=== PATIENT | female | born 1935 | race African-American/Black ===

== ENCOUNTER 2018-07-26 23:50 | Emergency (ER) | payer MEDICARE, MEDICAID ==
[~2018-07-26] VITALS: Ht 167.6 cm; Wt 86.0 kg
[2018-07-27] MEDS ORDERED: MECLIZINE 25MG TABLET PO ONE (00:45)
[2018-07-27 00:56] LABS: EOSINOPHILS % 4.4 % (0.0-5.0); HEMATOCRIT. 37.7 % (36.0-48.0); HEMOGLOBIN. 12.6 g/dL (12.0-16.0); LYMPHOCYTES % 28.8 % (20.0-50.0); MEAN CORPUSCULAR HEMOGLOBIN 32.1 pg (28.0-32.0); MONOCYTES % 8.3 % (2.0-8.0); NEUTROPHILS % 57.5 % (40.0-76.0); PLATELET 232 x1000/uL (130-400); RED BLOOD CELL COUNT 3.92 mill/uL (4.2-5.4); RED CELL DISTRIBUTION WIDTH 12.9 % (11.6-14.6)
[2018-07-27 01:01] LABS: CHLORIDE 109 mEq/L (98-107)
[2018-07-27 05:22] VITALS: BP 174/81
== END 2018-07-27 05:30 | disposition home or self-care (01) ==
LOC: ER 23:50
DX: R42 Dizziness and giddiness (principal); I10 Essential (primary) hypertension; E11.9 Type 2 diabetes mellitus without complications; E78.00 Pure hypercholesterolemia, unspecified; Z90.710 Acquired absence of both cervix and uterus; Z96.659 Presence of unspecified artificial knee joint; Z98.890 Other specified postprocedural states; Z88.0 Allergy status to penicillin
CPT/HCPCS: 36415; 70450; 71045; 80053; 83880; 84484; 85025; 93005; 99284; J8597

== ENCOUNTER 2018-09-15 17:47 | Inpatient (IN) | payer MEDICARE, MEDICAID ==
[~2018-09-15] VITALS: Ht 180.3 cm; Wt 97.2 kg
[2018-09-15] MEDS ORDERED: SODIUM CHLORIDE 0.9% 500 ML IV ONE (19:26)
[2018-09-15] MEDS ORDERED: ASPIRIN 81MG TABLET PO ONE (19:30)
[2018-09-15 19:52] LABS: BASOPHILS % 1.2 % (0.0-2.0); EOSINOPHILS % 3.2 % (0.0-5.0); HEMATOCRIT. 37.9 % (36.0-48.0); HEMOGLOBIN. 12.9 g/dL (12.0-16.0); LYMPHOCYTES % 24.7 % (20.0-50.0); MEAN CORPUSCULAR HEMOGLOBIN 32.3 pg (28.0-32.0); MEAN CORPUSCULAR VOLUME 95.2 fL (81.0-99.0); MEAN PLATELET VOLUME 8.3 fl (7.4-10.4); MONOCYTES % 9.5 % (2.0-8.0); NEUTROPHILS % 61.4 % (40.0-76.0); PLATELET 178 x1000/uL (130-400); RED BLOOD CELL COUNT 3.97 mill/uL (4.2-5.4); RED CELL DISTRIBUTION WIDTH 13.4 % (11.6-14.6)
[2018-09-15 19:56] LABS: CHLORIDE 105 mEq/L (98-107)
[2018-09-15 19:58] LABS: PROTHROMBIN TIME 10.2 sec (9.6-11.0)
[2018-09-15] MEDS ORDERED: POTASSIUM CHLORIDE 20MEQ TABLET SR PO ONE (20:15)
[2018-09-15] MEDS ORDERED: ONDANSETRON HCL 4MG/2ML INJ IV PRN (20:30)
[2018-09-15] MEDS ORDERED: ACETAMINOPHEN 325MG TABLET PO PRN (20:30)
[2018-09-15] MEDS ORDERED: DOCUSATE SODIUM 100MG CAPSULE PO PRN (20:30)
[2018-09-15] MEDS ORDERED: CLONIDINE 0.1MG TABLET PO PRN (20:30)
[2018-09-15] MEDS ORDERED: NITROGLYCERIN OINT 1GM/INCH UDPKT TD ONE (20:30)
[2018-09-15] MEDS ORDERED: HYDROMORPHONE HCL/PF 2MG/ML CPJ IV PRN (20:30)
[2018-09-15] MEDS ORDERED: ACETAMINOPHEN 325MG TABLET PO ONE (20:30)
[2018-09-15 22:12] LABS: CLARITY URINE CLOUDY (CLEAR); COLOR URINE YELLOW (YELLOW); KETONES URINE NEGATIVE (NEGATIVE); LEUKOCYTE ESTERASE URINE TRACE (NEGATIVE); NITRITE URINE NEGATIVE (NEGATIVE); OCCULT BLOOD URINE NEGATIVE (NEGATIVE); PH URINE 7.5 (4.5-8.0); PROTEIN URINE NEGATIVE (NEGATIVE); SPECIFIC GRAVITY URINE 1.007 (1.005-1.030)
[2018-09-15 22:25] LABS: *AMPHETAMINES SCREEN URINE NEGATIVE (NEGATIVE); *BARBITURATES SCREEN URINE NEGATIVE (NEGATIVE); *BENZODIAZEPINES SCREEN URINE NEGATIVE (NEGATIVE); *COCAINE SCREEN URINE NEGATIVE (NEGATIVE); METHADONE URINE SCREEN NEGATIVE (NEGATIVE); OPIATES URINE SCREEN NEGATIVE (NEGATIVE)
[2018-09-15 22:26] LABS: CANNABINOID URINE SCREEN NEGATIVE (NEGATIVE); PHENCYCLIDINE URINE SCREEN NEGATIVE (NEGATIVE)
[2018-09-15 22:45] VITALS: BP 144/75
[2018-09-15 23:00] VITALS: BP 144/75
[2018-09-16] MEDS ORDERED: DEXTROSE 50% WATER 50ML SYRINGE IV PRN (02:45)
[2018-09-16 04:00] VITALS: BP 156/77
[2018-09-16] MEDS ORDERED: TRAV2.5D EACHEYE (04:25)
[2018-09-16] MEDS ORDERED: LTMX5 EACHEYE (04:25)
[2018-09-16] MEDS: LEVOFLOXACIN 250MG PREMIX 50 ML IV SCH (06:14)
[2018-09-16] MEDS: BLOOD SUGAR DIAGNOSTIC STRIP TEST SCH ×4 (06:18→21:00)
[2018-09-16 06:32] LABS: BASOPHILS % 1.3 % (0.0-2.0); EOSINOPHILS % 4.2 % (0.0-5.0); HEMATOCRIT. 34.2 % (36.0-48.0); HEMOGLOBIN. 11.6 g/dL (12.0-16.0); LYMPHOCYTES % 31.5 % (20.0-50.0); MEAN CORPUSCULAR HEMOGLOBIN 32.4 pg (28.0-32.0); MEAN CORPUSCULAR VOLUME 95.2 fL (81.0-99.0); MEAN PLATELET VOLUME 8.3 fl (7.4-10.4); MONOCYTES % 9.5 % (2.0-8.0); NEUTROPHILS % 53.5 % (40.0-76.0); PLATELET 162 x1000/uL (130-400); RED BLOOD CELL COUNT 3.59 mill/uL (4.2-5.4); RED CELL DISTRIBUTION WIDTH 12.9 % (11.6-14.6)
[2018-09-16 06:42] LABS: CHLORIDE 110 mEq/L (98-107)
[2018-09-16 06:54] LABS: LDL CHOLESTEROL 46 mg/dL (5-100)
[2018-09-16 06:56] LABS: HDL CHOLESTEROL 76 mg/dL (40-59)
[2018-09-16] MEDS: INSULIN LISPRO 100 UNITS/ML SUBCUT SCH ×4 (07:15→21:00)
[2018-09-16 08:00] VITALS: BP 187/85
[2018-09-16] MEDS: ENOXAPARIN 40MG/0.4ML SYR SUBCUT SCH (08:33)
[2018-09-16] MEDS ORDERED: MIDODRINE HCL 5MG TABLET PO SCH (09:15)
[2018-09-16] MEDS ORDERED: LOSA100T14 PO (10:09)
[2018-09-16] MEDS ORDERED: ASPI-1159 PO (10:14)
[2018-09-16] MEDS ORDERED: AMLO5TAB88 PO (10:14)
[2018-09-16] MEDS ORDERED: METO25TA6 PO (10:14)
[2018-09-16] MEDS ORDERED: HYDR-4134 PO (10:14)
[2018-09-16] MEDS ORDERED: POLY15DR33 EACHEYE (10:47)
[2018-09-16] MEDS ORDERED: LATA2.5D2 EACHEYE (10:47)
[2018-09-16 12:00] VITALS: BP 106/66
[2018-09-16] MEDS: [UNRECOGNIZED DRUG - OTHER] OP SCH ×3 (12:45→21:14)
[2018-09-16 16:00] VITALS: BP 124/67
[2018-09-16 20:00] VITALS: BP 129/58
[2018-09-16] MEDS ORDERED: NON FORMULARY PATIENT HOME MED OP SCH (21:00)
[2018-09-17] VITALS: BP 134/67
[2018-09-17 04:00] VITALS: BP 134/68
[2018-09-17] MEDS: LEVOFLOXACIN 250MG PREMIX 50 ML IV SCH (06:23)
[2018-09-17] MEDS: BLOOD SUGAR DIAGNOSTIC STRIP TEST SCH ×2 (06:37→12:00)
[2018-09-17] MEDS: INSULIN LISPRO 100 UNITS/ML SUBCUT SCH ×2 (06:38→12:00)
[2018-09-17 08:00] VITALS: BP 136/71
[2018-09-17] MEDS: ENOXAPARIN 40MG/0.4ML SYR SUBCUT SCH (09:42)
[2018-09-17] MEDS: [UNRECOGNIZED DRUG - OTHER] OP SCH ×2 (09:43→12:58)
[2018-09-17 12:00] VITALS: BP 150/72
[2018-09-17 13:08] VITALS: BP 150/72
== END 2018-09-17 15:05 | disposition home or self-care (01) | DRG 153 ==
LOC: ER 17:47 → 5WST 20:19 → ENRESERV 22:08
PROVIDERS: ADMIT Internal Medicine Nephrology; ATTEND Internal Medicine Nephrology
DX: J11.1 Influenza due to unidentified influenza virus with other respiratory manifestations (principal); E11.9 Type 2 diabetes mellitus without complications; I49.3 Ventricular premature depolarization; E78.5 Hyperlipidemia, unspecified; I10 Essential (primary) hypertension; Z96.659 Presence of unspecified artificial knee joint; Z85.3 Personal history of malignant neoplasm of breast; Z90.710 Acquired absence of both cervix and uterus; Z85.42 Personal history of malignant neoplasm of other parts of uterus; Z90.12 Acquired absence of left breast and nipple; Z88.0 Allergy status to penicillin; Z79.82 Long term (current) use of aspirin; Z79.899 Other long term (current) drug therapy
CPT/HCPCS: 36415; 71045; 78582; 80061; 80305; 82962; 83880; 84443; 84484; 87804; 93005; 93306; 93970; 97162; 97166; 97535; 99285; A9558; J1650; J1956; J7040; J7050

== ENCOUNTER → 2023-03-19 | Day surgery (SDC) | payer MEDICARE, MEDICAID ==
[~2023-03-19] VITALS: Ht 167.6 cm; Wt 81.6 kg
[~2023-03-19] MED LIST: AMLO5TAB88 PO; ASCO-339 PO; ASPI-1497 PO; BALANCED SALT IRRIG SOLN COMB1 500ML OP ONE; CHOL400D7 PO; CYAN100086 PO; CYCLOPENTOLATE HCL 1% OPHTH DROPS 2ML LEFTEYE ONE; FENTANYL CITRATE/PF 50MCG/ML 2ML VIAL ONE; FURO-151 PO; GLIM1TAB PO; HYALURONATE SODIUM 10 MG/ML 0.55ML SYRINGE IO ONE; HYDR-4134 PO; IBUP-2030 PO; KETOROLAC 30MG/ML VIAL ONE; LACTATED RINGERS 1,000 ML IV SCH; LATA2.5D14 EACHEYE; LOSA100T33 PO; LTMX5 EACHEYE; METO25TA6 PO; MIDAZOLAM HCL 2 MG/2 ML VIAL ONE; PHENYLEPHRINE HCL 10% OPHTH DROPS 5ML LEFTEYE ONE; POLY15DR33 EACHEYE; POTA-205 PO; PROPOFOL 200MG/20ML VIAL IV ONE; ROSU20TA2 PO; TRAV2.5D EACHEYE; TRIAMCINOLONE ACETONIDE 40MG/ML 1ML VIAL ONE; TROPICAMIDE 1% OPHTH DROPS 15ML LEFTEYE ONE; TRYPAN BLUE 0.5 ML DISP.SYRIN IO ONE
== END | disposition home or self-care (01) ==
LOC: OR 05:21
PROVIDERS: ATTEND Ophthalmology
DX: E11.36 Type 2 diabetes mellitus with diabetic cataract (principal); H25.89 Other age-related cataract; I10 Essential (primary) hypertension; E78.5 Hyperlipidemia, unspecified; Z85.3 Personal history of malignant neoplasm of breast; Z90.710 Acquired absence of both cervix and uterus; Z98.890 Other specified postprocedural states; Z79.899 Other long term (current) drug therapy; Z80.49 Family history of malignant neoplasm of other genital organs; Z80.3 Family history of malignant neoplasm of breast; Z88.0 Allergy status to penicillin
CPT/HCPCS: 82962; 66982; J3010; Q9957; J1885; J2250; J2704; J3301; J3490; A4217; Z7610 ×17; V2632

== ENCOUNTER → 2023-09-10 | Day surgery (SDC) | payer MEDICARE, MEDICAID ==
[~2023-09-10] VITALS: Ht 165.1 cm; Wt 77.1 kg
[~2023-09-10] MED LIST changes: +ACETAMINOPHEN 650MG/20.3ML UDC PO PRN; +BALANCED SALT IRRIG SOLN 15ML ONE; +BALANCED SALT IRRIG SOLN COMB1 500ML OP NR; -BALANCED SALT IRRIG SOLN COMB1 500ML OP ONE; -CYCLOPENTOLATE HCL 1% OPHTH DROPS 2ML LEFTEYE ONE; -HYDR-4134 PO; +HYDR50TA40 PO; -KETOROLAC 30MG/ML VIAL ONE; -LACTATED RINGERS 1,000 ML IV SCH; -LATA2.5D14 EACHEYE; +LIDOCAINE HCL/PF 1% 10 MG/ML 5ML VIAL ONE; -LTMX5 EACHEYE; -MIDAZOLAM HCL 2 MG/2 ML VIAL ONE; +ONDANSETRON HCL 4MG/2ML INJ IV PRN; -PHENYLEPHRINE HCL 10% OPHTH DROPS 5ML LEFTEYE ONE; +PHENYLEPHRINE HCL 10% OPHTH DROPS 5ML RIGHTEYE SCH; +PHENYLEPHRINE/CYCLOPENT 0.2-1% OPHTH DROPS 2ML RIGHTEYE SCH; -POLY15DR33 EACHEYE; -POTA-205 PO; +POTA8CAP20 PO; +SODIUM CHLORIDE 0.9% 1,000 ML IV SCH; -TRAV2.5D EACHEYE; -TRIAMCINOLONE ACETONIDE 40MG/ML 1ML VIAL ONE; -TROPICAMIDE 1% OPHTH DROPS 15ML LEFTEYE ONE; +TROPICAMIDE 1% OPHTH DROPS 15ML RIGHTEYE SCH
== END | disposition home or self-care (01) ==
LOC: OR 06:24
PROVIDERS: ATTEND Ophthalmology
DX: E11.36 Type 2 diabetes mellitus with diabetic cataract (principal); H25.89 Other age-related cataract; I11.0 Hypertensive heart disease with heart failure; I50.9 Heart failure, unspecified; E78.5 Hyperlipidemia, unspecified; Z79.82 Long term (current) use of aspirin; Z79.899 Other long term (current) drug therapy; Z88.0 Allergy status to penicillin; Z82.49 Family history of ischemic heart disease and other diseases of the circulatory system; Z80.3 Family history of malignant neoplasm of breast; Z85.3 Personal history of malignant neoplasm of breast; Z90.710 Acquired absence of both cervix and uterus
CPT/HCPCS: 66984; 82962; J3010; Q9957; J3490 ×3; J2704; A4217; Z7610 ×17; V2632